=== PATIENT | male | born 1980 | race Two or more races ===

== ENCOUNTER 2025-04-25 12:15 | Emergency (ER) | payer OTHER ==
[~2025-04-25] VITALS: Ht 185.4 cm; Wt 108.9 kg
[2025-04-25 13:33] VITALS: BP 135/81; O2SAT 96
[2025-04-25] MEDS ORDERED: KETOROLAC TROMETHAMINE 30 MG VIAL IV ONE (15:15)
[2025-04-25] MEDS ORDERED: DEXAMETHASONE SODIUM PHOSPHATE 4 MG/ML VIAL IV ONE (15:15)
[2025-04-25] MEDS ORDERED: ORPHENADRINE CITRATE 30 MG/ML AMPUL IV ONE (15:15)
[2025-04-25] MEDS ORDERED: KETOROLAC TROMETHAMINE 30 MG VIAL ONE (15:17)
[2025-04-25] MEDS ORDERED: ORPHENADRINE CITRATE 30 MG/ML AMPUL ONE (15:17)
[2025-04-25] MEDS ORDERED: DEXAMETHASONE SODIUM PHOSPHATE 4 MG/ML VIAL ONE (15:17)
[2025-04-25] MEDS ORDERED: MEDROLPACK PO (17:28)
[2025-04-25] MEDS ORDERED: NORFLEX100MG PO (17:28)
[2025-04-25] MEDS ORDERED: DICLOFENAC SODI50 MG PO (17:28)
== END 2025-04-25 18:24 ==
LOC: ER 12:15
DX: M51.369 Other intervertebral disc degeneration, lumbar region without mention of lumbar back pain or lower extremity pain (principal); Z85.47 Personal history of malignant neoplasm of testis